=== PATIENT | female | born 1955 | race Caucasian/White ===

== ENCOUNTER 2020-12-04 00:28 | Emergency (ER) | payer MEDICARE ==
[~2020-12-04] VITALS: Ht 167.6 cm; Wt 81.7 kg
[2020-12-04] MEDS ORDERED: ZOFRAN4 MG PO (01:28)
== END 2020-12-04 02:27 | disposition home or self-care (01) ==
LOC: ED 00:28
DX: R60.0 Localized edema (principal)
CPT/HCPCS: 71046; 80053; 85025; 96374; 96375; 99284-25; J1200; J2405; J2930